=== PATIENT | male | born 1950 | race Caucasian/White ===

== ENCOUNTER 2019-08-18 06:46 | Inpatient (IN) | payer OTHER ==
[2019-08-12 10:28] LABS: HEMATOCRIT 46.5 % (42.0-52.0); HEMOGLOBIN 15.3 gm/dL (14.0-18.0); MCH 27.9 pg (26.0-34.0); MCHC 32.8 g/dL (28.0-37.0); MCV 85.3 fL (80.0-100.0); RBC 5.46 mil/uL (4.50-6.00); RDW 13.3 % (10.5-14.5); WBC 6.4 thou/uL (4.0-11.0)
[2019-08-12 10:39] LABS: ALBUMIN 4.2 g/dL (3.4-5.0); CALCIUM 9.2 mg/dL (8.5-10.1); CREATININE 0.8 mg/dL (0.7-1.3); POTASSIUM 4.2 mmol/L (3.5-5.1)
[2019-08-12 10:41] LABS: INR 1.1; PROTIME 11.4 Seconds (9.3-11.4)
[2019-08-12 10:42] LABS: URINE BILIRUBIN NEGATIVE (Negative); URINE BLOOD NEGATIVE (Negative); URINE CLARITY CLEAR; URINE COLOR YELLOW; URINE GLUCOSE-RANDOM* NEGATIVE (Negative); URINE KETONES NEGATIVE (Negative); URINE LEUKOCYTES-REFLEX NEGATIVE (Negative); URINE NITRITE-REFLEX NEGATIVE (Negative); URINE PROTEIN (DIPSTICK) NEGATIVE (Negative); URINE UROBILINOGEN 0.2 E.U./dl (0.2-1.0)
[~2019-08-18] VITALS: Ht 190.5 cm; Wt 131.5 kg
[~2019-08-18 06:46] MED LIST: ALEVE220 MG PO; LIPITOR80 MG PO; LISINOPRIL10 MG PO; METOPROLOL SUCC50 MG PO; SYNTHROID50 MCG PO; TYLENOL EXTRA500 MG PO; XARELTO20 MG PO
[2019-08-18 14:05] VITALS: BP 145/71
[2019-08-18 19:47] VITALS: BP 166/87
[2019-08-18 20:10] VITALS: BP 161/95
--- NOTE | 2019-08-18 20:31 | NUR ---
Pt came to unit from PACU approx 1814. Pain controlled. Pt able to walk to toilet with walker and gait belt. IV fluids infusing. Report given to briana BRENNAN.
[2019-08-18 20:40] VITALS: BP 139/80
[2019-08-18 21:40] VITALS: BP 151/85
[2019-08-18 22:40] VITALS: BP 149/79
--- NOTE | 2019-08-19 00:50 | NUR ---
ASSESSMENT COMPLETED. PT IS ALERT AND ORIENTED.VERY PLEASANT AND COOPERATIVE.PT HAS BEEN UP WALKING TO THE BATHROOM. VOIDING OKAY. BP ELEVATED AT HS-SCHEDULED BP MEDS GIVEN. L KNEE WITH CORTEZ DRSG INTACT WELL THE POLAR RULA. TEDS AND SCDS IN PLACE. AFEBRILE. ATE SOME DINNER-NO NAUSEA AND VOMITING NOTED.WILL CONTINUE WITH POC TILL EOS.
[2019-08-19 04:55] VITALS: BP 146/65
[2019-08-19 05:43] LABS: HEMATOCRIT 41.9 % (42.0-52.0); HEMOGLOBIN 13.5 gm/dL (14.0-18.0); MCH 27.3 pg (26.0-34.0); MCHC 32.1 g/dL (28.0-37.0); RBC 4.93 mil/uL (4.50-6.00)
[2019-08-19 07:47] VITALS: BP 150/75
[2019-08-19] MEDS ORDERED: NEURONTIN 300300 M1 PO (09:04)
--- NOTE | 2019-08-19 09:08 | O ---
[facility] [place] [address] OPERATIVE REPORT Name: DEISY ANTONIO Room #: 429-P ADM IN M.R.#: [id number] Admission: 08/18/19 ������������������ Attend Phys: Glen Avalos MD Discharge: ������������������ Date of : 50 Report #: [id number] THIS REPORT FOR: //name// CC: MALVIN Avalos DATE OF SERVICE: 08/18/2019 PREOPERATIVE DIAGNOSIS: Left knee medial compartment osteoarthritis. POSTOPERATIVE DIAGNOSIS: Left knee medial compartment osteoarthritis. PROCEDURE: Left knee medial compartment arthroplasty. SURGEON: Glen Avalos MD. PRINCIPAL AUTOMATION ENGINEER: Thi Manjarrez PA-C. INDICATIONS FOR PRINCIPAL AUTOMATION ENGINEER: Throughout the case, extensive retraction and manipulation of the knee was required. This was afforded to me by my printer assistant. ANESTHESIA: LMA with an adductor canal block. IMPLANTS: [employer] size 7 Journey Oxinium medial femoral component, a size 4 tibia and size 9 polyethylene. TOURNIQUET TIME: 52 minutes. ESTIMATED BLOOD LOSS: 25 mL. SPECIMENS: None. SPECIMENS: None. CONDITION UPON LEAVING THE OPERATING ROOM: Stable. INDICATIONS FOR PROCEDURE: The patient is a 68-year-old gentleman with medial compartment, left knee osteoarthritis. He had failed conservative measures for this and after discussion with him, he elected for left medial compartment knee arthroplasty. DESCRIPTION OF PROCEDURE: Risks, benefits, alternatives, complications were discussed in detail with the patient including but not limited to risk of anesthesia, risk of damage to nerves, arteries, blood vessels, risk for infection, bleeding, risk for continued knee pain and need for reoperation. Informed consent was obtained from the patient. Left knee was appropriately [facility] [address] [place] [address] OPERATIVE REPORT Name: DEISY ANTONIO Room #: 429-P ADM IN M.R.#: [id number] Admission: 08/18/19 ������������������ Attend Phys: Glen Avalos MD Discharge: ������������������ Date of : 50 Report #: [id number] marked in the preoperative holding area. IV Ancef was given for preoperative antibiotics. He was brought to the operating room and placed in supine position on operating room table. LMA anesthesia was induced without complication. Tourniquet was placed on the left thigh. Left lower extremity was prepped and draped in normal sterile fashion. Timeout was performed properly identifying the patient and procedure as well as the instrumentation and implants. All in the operating room were in agreement. Left lower extremity was exsanguinated, tourniquet was inflated. Tourniquet time was 52 minutes. Standard approach to the medial knee was made with 10 blade through the skin. Dissection was taken down sharply to the fascia and deep flaps were developed medially and laterally. Fresh 10 blade was used to make a medial parapatellar arthrotomy and the knee was inspected. There was severe medial compartment osteoarthritis. Lateral compartment was well maintained. ACL was intact. 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 It was decided to proceed with unicompartmental knee arthroplasty. Reference pins were placed in the femur and the tibia. The knee was digitally mapped using the [employer] robotic system. We sized to size 7 femur with a size 4 tibia and 9 spacer. After acceptance of the intraoperative plan, the femoral and tibial resections were made using the Navio bur. Tibia was sized, found to be a size 4. Size 4 tibial trial was placed and drilled. A size 7 femoral trial was placed. This was then trialed with a size 9 polyethylene. Knee was taken through range of motion, found to have 1 millimeter of laxity medially throughout range of motion. After this, trial components were removed. Bony ends were thoroughly irrigated with normal saline. A final size 4 tibia, size 7 Journey II Oxinium medial femoral component were cemented in place using standard cementation techniques. While the cement cured, a periarticular injection consisting of morphine, ropivacaine, epinephrine and Toradol was placed around the knee joint capsule. After the cement cured, the tourniquet was deflated. Hemostasis was obtained with Bovie cautery. Final size 9 polyethylene was placed. A gram of vancomycin was placed deep in the joint. Fascia was closed with 0 Vicryl, skin was closed with 2-0 Vicryl, 3-0 Monocryl. Dermabond and a CORTEZ dressing was applied. The patient tolerated this procedure well and went to the recovery room under the care of anesthesia postoperatively. ��������������������������������������������� <ELECTRONICALLY SIGNED> ���������������������������������������� By: Glen Avalos MD ��������������������������������������������� 08/19/19 [id number] Glen Avalos MD /nt
--- NOTE | 2019-08-19 13:21 | NUR ---
ASSESSMENT-PT LIVES AT HOME WITH HIS . IS FRAIL AND NEEDS A HIP REPLACED. PT WILL NEED A ROLLER WALKER ONCE MEDICALLY STABLE FOR DC. PT HAS HIS OUTPT APPT SET UP FOR FRIDAY WITH [facility]. IS ABLE TO ASSIST WITH HOUSEHOLD THINGS AND WILL BE ABLE TO PROVIDE TRANSPORTATION. FOLLOWING TO ASSIST WITH DC PLANNING. PT WAS DRIVING PRIOR TO ADMISSION.
[2019-08-19 19:31] VITALS: BP 151/77
[2019-08-20 05:16] VITALS: BP 169/71
--- NOTE | 2019-08-20 05:33 | NUR ---
PATIENT ALERT AND ORIENTED X4. UP TO BATHROOM WITH SBA ONLY. DRESSING ON L KNEE DRY AND INTACT. READY TO GO HOME. SLEPT MOST OF NIGHT, DENIES PAIN.
[2019-08-20 05:43] LABS: HEMATOCRIT 41.5 % (42.0-52.0); HEMOGLOBIN 13.3 gm/dL (14.0-18.0); MCH 27.8 pg (26.0-34.0); MCHC 32.1 g/dL (28.0-37.0); MCV 86.6 fL (80.0-100.0); RBC 4.79 mil/uL (4.50-6.00); RDW 13.5 % (10.5-14.5); WBC 13.2 thou/uL (4.0-11.0)
[2019-08-20 08:06] VITALS: BP 154/72
[2019-08-20 15:33] VITALS: BP 154/72
== END 2019-08-20 16:06 | disposition home or self-care (01) | DRG 470 ==
LOC: PRE 06:46 → TBA 12:46 → 4E 12:46 → ENTRNSPT 08-20 15:33 → EDTRNSPTSTS 08-20 15:36 → 4E 08-20 16:06
PROVIDERS: ADMIT Orthopaedic Surgery
PROC: 8E0Y0CZ Robotic Assisted Procedure of Lower Extremity, Open Approach (ICD-10-PCS; principal; 2019-08-18)
PROC: 0SRD0L9 Replacement of Left Knee Joint with Medial Unicondylar Synthetic Substitute, Cemented, Open Approach (ICD-10-PCS; principal; 2019-08-18)
DX: M17.12 Unilateral primary osteoarthritis, left knee (principal); Z91.040 Latex allergy status
CPT/HCPCS: 10783; 50010; 50101; 50415; 50954; 51130; 51225; 51320; 52001; 52282; 53078; 53370; 54118; 56527; 56528; 57095; 57103; 57110; 57127; 57180; 62110; 62900; 64039; 70005

== ENCOUNTER 2019-09-03 13:17 | Day surgery (SDC) | payer OTHER ==
[~2019-09-03] VITALS: Ht 193 cm; Wt 127.0 kg
[~2019-09-03 13:17] MED LIST changes: +MS CONTIN 30 MG30 MG PO; +NEURONTIN 300300 M1 PO; +NORCO 5-325 TA1 EAC1 PO
[2019-09-03 14:10] VITALS: BP 146/63
[2019-09-03 16:29] VITALS: BP 146/63
--- NOTE | 2019-09-07 11:04 | O ---
[facility] [address] OPERATIVE REPORT Name: DEISY ANTONIO Room #: DEP [facility]..#: [id number] Admission: 09/03/19 Attend Phys: Glen Avalos MD Discharge: 09/03/19 Date of : 50 Report #: [id number] THIS REPORT FOR: //name// CC: FAM unknown Glen Avalos DATE OF SERVICE: 09/03/2019 PREOPERATIVE DIAGNOSIS: Left knee postoperative hematoma. POSTOPERATIVE DIAGNOSIS: Left knee postoperative hematoma. PROCEDURE: Evacuation of left knee hematoma. SURGEON: Glen Avalos MD. FOOD SERVICE ORDER CLERK: Thi Manjarrez PA-C. ANESTHESIA: LMA. ESTIMATED BLOOD LOSS: 10 mL. SPECIMENS: None. CONDITION UPON LEAVING THE OPERATING ROOM: Stable. INDICATIONS FOR PROCEDURE: The patient is a 69-year-old gentleman who is little over 2 weeks out from a left unicompartmental knee arthroplasty. He presented to the office at his 2-week visit with continued bloody drainage from his inferior incision that had opened just a slight amount. He had some fluctuance under the skin. It was felt that he had a postoperative hematoma. He was previously on Xarelto. After discussion with him and his , they elected for evacuation of left knee hematoma. DESCRIPTION OF PROCEDURE: Risks, benefits, alternatives, and complications were discussed in detail with the patient including, but not limited to, risk of anesthesia, risk of damage to nerves, arteries, blood vessels, risk for infection, bleeding, risk for continued knee pain, need for reoperation. Informed consent was obtained from the patient. Left knee was appropriately marked in the preoperative holding area. IV Ancef was given for preoperative antibiotics. He was brought to the operating room and placed in supine position on operating room table. LMA anesthesia was induced without complication. Left lower extremity was prepped and draped in normal sterile fashion. Timeout was performed properly identifying the patient and procedure as well as the instrumentation. All in the operating room were in agreement. The lower portion of the incision that was draining was opened with a 10 blade. Upon [address] [address] OPERATIVE REPORT Name: MARISELADEISY Room #: DEP [facility] M.R.#: [id number] Admission: 09/03/19 Attend Phys: Glen Avalos MD Discharge: 09/03/19 Date of : 50 Report #: [id number] entering the subcutaneous space, there was a hematoma that was easily evacuated. This did not go deep into the joint and the adipose layer was thoroughly irrigated with normal saline. Skin was closed with 2-0 nylon and a CORTEZ dressing was applied. The patient tolerated this procedure well and went to the recovery room under care of Anesthesia postoperatively. <ELECTRONICALLY SIGNED> By: Glen Avalos MD 09/07/19 1104 [id number] Glen Avalos MD /nt
== END 2019-09-03 16:50 | disposition home or self-care (01) ==
LOC: OR 13:17 → TBA 13:22 → OR 16:50
DX: M96.840 Postprocedural hematoma of a musculoskeletal structure following a musculoskeletal system procedure (principal); M17.12 Unilateral primary osteoarthritis, left knee; Z96.652 Presence of left artificial knee joint; Z91.040 Latex allergy status; Z79.899 Other long term (current) drug therapy; Z98.890 Other specified postprocedural states
CPT/HCPCS: 50010; 50101; 50415; 56525; 57116; 62110; 62900; 70005